=== PATIENT | female | born 1970 | race Asian ===

== ENCOUNTER 2019-04-03 10:50 | Emergency (ER) | payer OTHER ==
[~2019-04-03] VITALS: Ht 152.4 cm; Wt 49.9 kg
[2019-04-03 10:58] VITALS: Ht 152.4 cm; Wt 49.9 kg
[2019-04-03 11:50] VITALS: BP 121/71
== END 2019-04-03 11:51 | disposition home or self-care (01) ==
LOC: ED 10:50
DX: J02.9 Acute pharyngitis, unspecified (principal); Z88.1 Allergy status to other antibiotic agents